=== PATIENT | male | born 1950 | race Caucasian/White ===

== ENCOUNTER → 2017-12-13 12:18 | Outpatient (CLI) | payer OTHER, SELFPAY ==
--- NOTE | 2017-12-13 | DI.MRI.S_ITS ---
PROCEDURE: MR SHOULDER RT W CON INDICATIONS: STRAIN UNSPECIFIED MUSCLE/TENDON. Prior shoulder surgery 07/14/17 TECHNIQUE: After the administration of 12 mL of dilute intra-articular Gadolinium contrast, oblique coronal T1 and T2 spin echo with fat saturation, oblique sagittal T1 spin echo with and without fat saturation, oblique sagittal T2 fast spin echo with fat saturation, axial T1 spin echo with fat saturation through the shoulder. COMPARISON: [facility], RF, [place] SHOULDER INJECTION MR/CT RT, 12/13/2017, 12:57. [facility], MR, SHOULDER LT W/O CONTRAST, 08/04/2013, 16:34. [facility] [place], CR, XR SHOULDER 2+ VIEWS RIGHT, 04/21/2017, 13:19. [facility], MR, MR SHOULDER RIGHT WITHOUT CONTRAST, 04/16/2017, 16:56. FINDINGS: Image quality: Excellent. Rotator cuff: Postsurgical changes related to soft tissue anchors seen in the humeral head suggesting prior rotator cuff repair. However there is a full-thickness defect involving the supraspinatus tendon which measures approximately 4.0 cm in AP dimension as seen on sagittal image 12 series 8 and likely involves the anterior-most fibers of the infraspinatus and superior-most fibers of the subscapularis tendon. There is superimposed additional partial-thickness articular sided subscapularis tear. The teres minor appears intact. Atrophy and fatty infiltration of the subscapularis, supraspinatus and infraspinatus muscle bellies is present Bones and bursae: No bone marrow contusions or fractures. There is moderate acromioclavicular joint degeneration. The acromion demonstrates conventional anatomy, without an os acromiale. Capsule and soft tissues: Mild frayed appearance and intermediate intrasubstance signal change involving the anteroinferior labrum without definite intrasubstance gadolinium signal intensity. Remainder of the labrum appears grossly intact although there is slight posterior subluxation of the humeral head relative to the glenoid. Frayed appearance of the superior labrum without discrete tear. The long head of the biceps tendon demonstrates normal location and morphology. The rotator interval appears normal, without fibrosis. The coracohumeral ligament is of normal thickness. No intra-articular bodies. IMPRESSION: Large full-thickness rotator cuff tear as detailed above involving the supraspinatus and the adjacent fibers of the infraspinatus and subscapularis tendons . This may be recurrent tear given the history of right shoulder surgery and postoperative changes as above Slight posterior subluxation of the humeral head relative to the glenoid suggestive of microinstability however no discrete labral tear is seen. There is ill-defined frayed appearance of the anteroinferior and superior labrum however no definite intrasubstance gadolinium signal intensity. Dictated by: Kervin Wright M.D. on 12/13/2017 at 14:36 Approved by: Kervin Wright M.D. on 12/13/2017 at 14:55
--- NOTE | 2017-12-13 | DI.RAD.S_ITS ---
PROCEDURE: FL SHOULDER INJECTION MR/CT RT INDICATIONS: 67 year-old male with right shoulder rotator cuff tendon repair, and persistent pain. TECHNIQUE: The indications, alternatives, benefits, risks, and complications of the procedure were explained to the patient. Written informed consent was obtained and placed in the chart. The shoulder was examined fluoroscopically and a site for needle placement chosen for entry into the glenohumeral joint from an anterior approach. The skin was prepped and draped in a sterile fashion, and 1% lidocaine infiltrated from skin down to joint capsule. A spinal needle was inserted into the glenohumeral joint, and a small amount of iodinated contrast media injected to confirm intra-articular placement of the needle tip. This was followed by approximately 12 mL dilute solution of a gadolinium containing MR contrast agent. The needle was removed and a dressing was applied. The patient was given postprocedural instructions and sent to the MR suite for MR imaging. FINDINGS: A single fluoroscopic spot image demonstrates intra-articular location of injected iodinated contrast. IMPRESSION: Successful fluoroscopically guided administration of dilute Gadolinium solution into the right shoulder joint for MR arthrogram. Dictated by: Lawrence Aragon M.D. on 12/13/2017 at 13:51 Approved by: Lawrence Aragon M.D. on 12/13/2017 at 13:52
== END ==
PROVIDERS: Visit Provider Orthopaedic Surgery
DX: S46.011A Strain of muscle(s) and tendon(s) of the rotator cuff of right shoulder, initial encounter (principal)
CPT/HCPCS: 23350; 73222; 77002

== ENCOUNTER 2018-01-20 10:26 | Day surgery (SDC) | payer OTHER, SELFPAY ==
[2018-01-17 14:19] VITALS: BMI 35.9
[2018-01-20] VITALS (8 sets, daily range): BP systolic 136–155; BP diastolic 80–101; PULSE 55–73; RESP 10–20; TEMP 35.9–36.6; O2SAT 93–99; BMI 35.9
[2018-01-20] MEDS: LACTATED RINGERS 1,000 ML 42 ML IV (11:45)
--- NOTE | 2018-01-20 13:43 | PM.PREOP ---
Pre-operative Note Interval Note Pre-op Check: History & Physical Reviewed by Physician
--- NOTE | 2018-01-20 13:43 | SUR.PREOP ---
Block start time 1337[] . Monitoring initiated and maintained throughout procedure. Oxygen and medications given per anesthesiologist instructions. Patient remained stable throughout procedure, no adverse reactions noted. Block end time [1345 ].
[2018-01-20] MEDS: CEFAZOLIN 2 GM/100 ML FROZ.PIGGY IV (14:15)
--- NOTE | 2018-01-20 14:53 | SUR.OPER ---
Beach chair on padded OR bed. Head on gel donut secured with padded velcro strap over gauze. Non-operative arm secured <90 degrees abduction on padded arm board secured with kerlix atop pillow. Pillow under knees. Safety belt at thigh. Cloth tape over blanket over lower legs.
[2018-01-20] MEDS: BUPIVACAINE 0.5% W/ EPI (PF) 30 ML VIAL INJ (15:34)
[2018-01-20] MEDS: SODIUM CHLORIDE IRRIG SOLUTION 3,000 ML, EPINEPHrine 1 MG IRR (15:35)
--- NOTE | 2018-01-20 15:50 | PM.PROC.1 ---
Procedures Date/Time Date of procedure: 01/20/18 Time of procedure: 13:37 General Procedure description: Ultrasound guided interscalene brachial plexus nerve block for post op pain control after right shoulder by Dr. Douglas. Risk and benefits of procedure discussed with patient. ASA monitoring applied to patient. 02 given via nasal cannula. 1 mg Versed and 50 mcg fentanyl given for procedural sedation. Skin site was prepped with chlorhexidine and allowed to fully dry. Sterile gloves, mask, hat and probe cover were used to maintain sterility. 2% lidocaine and 30ga needle was used to make a small skin wheal at needle insertion site. Under ultrasound guidance, a 21ga 50mm Pajunk needle was directed into the interscalene groove (middle/anterior scalenes) near the brachial plexus. Patient reported no parasthesias. After negative aspiration, 20 mL 0.5% ropivicaine and 10mg dexamethasone were injected around brachial plexus. Patient tolerated procedure well.
--- NOTE | 2018-01-20 16:00 | P.OP_ITS ---
Operative Date/Time/Diagnoses Date of procedure: 01/20/18 Time of procedure: 14:00 Pre-op diagnosis: Massive right rotator cuff tear Post-op diagnosis: same Procedure & Clinicians Procedure: Arthroscopic diagnostic shoulder scope followed by an open rotator cuff repair Same procedure as scheduled: Yes Indications: Massive rotator cuff tear involving supraspinatus and part of infraspinatus Surgeon: Leroy Douglas Instructor Hairspring: Ilene Pena Anesthesia Type: General and Peripheral nerve block Operative Notes Findings: Failure of previous repair of the supraspinatus with now some extension into 50% of the infraspinatus. Significant uncovering of the humeral head. No sign of any high riding humerus. No sign of any fractures. Closure Type: primary Specimen(s): none sent Implants & Drains: Arthrex Speed bridge x2 Applied: implant(s) Estimated Blood Loss (mL): 10 Blood products transfused: none Procedure in detail: On date of service, Patient was met in the holding area. The operative site was signed and witnessed by the OR staff. The surgeries once again discussed with the patient and any remaining questions they had were answered fully. Patient was taken back to the operating theater and placed on the operating table in a supine position. Great care was taken to ensure that all bony prominences were properly padded. Patient was then placed into the beach chair position. The head and neck were properly positioned and secured. A timeout was performed verifying patient's name, procedure, and the operative site. The upper extremity was then prepped and draped in the normal sterile fashion. Previously, the bony anatomy and portal sites were marked out as well as injected with Marcaine with epinephrine. An 11 blade was used to make an incision in the posterior aspect of the shoulder. The camera was placed, and a diagnostic shoulder scope was performed. Findings listed above. Camera was placed into the subacromial space. 1 could see the sutures still attached to the lateral anchor but pulled out of the cuff. At this point it was decided to convert over to an open procedure. Anterior lateral incision was made using a 10 blade. Electrocautery was used to achieve hemostasis. Deep dissection was performed until the fascia to the deltoid was visualized. Metzenbaum sutures were used to make a blunt split in the deltoid giving us good access to the subacromial space and the humeral head. We could see the free suture material still attached to the anchor as well as the uncovered humeral head. The previous suture material was removed. The previous anchor was left in place. It was still well seated in the bone. Using a combination of a Thorne elevator and arthroscopic liberators, the rotator cuff was freed of any scarring both superior and inferior. This allowed us to get a significant improvement in overall retraction of the cuff. Once all the adhesions were released we are able to pull the cuff back down to its normal footprint. It was decided at this point to do a double row repair. Two medial anchors were placed for the infraspinatus and repaired to 2 lateral anchors in a speed bridge pattern with crisscross sutures recreating the footprint. This was then repeated again with 2 more medial anchors for the supraspinatus with those sutures going in to 2 lateral anchors in a crisscross pattern allowing us to recreate the footprint for the supraspinatus. This provided a johnson repair of the rotator cuff. Subscapularis was free of any tearing as well as the biceps tendon. Wound was then copiously irrigated and closed in layered fashion. 2. FiberWire was used to repair the deltoid and the rest of the wound was closed in layered fashion. Patient was extubated and taken to the PACU in stable condition. Complications: none Condition: stable Disposition: PACU Plan for aftercare: Patient be in a sling for 6 weeks. Patient will follow our postoperative protocol for massive rotator cuff tear.
[2018-01-20] MEDS: fentaNYL 100 MCG/2 ML INJ 50 MCG IV (16:28)
[2018-01-20] MEDS: HYDROCODONE/ACET 5/325 TABLET 1 TAB PO (16:48)
--- NOTE | 2018-01-20 16:51 | SUR.PHASEI ---
Pt reported itching with pain med, unsure of name, clarified percocet made pt itchy per pt's spouse, Sury. JOSE Pearl notified, RX changed and ok to give po hydrocodone per [place].
== END 2018-01-20 17:30 | disposition home or self-care (01) ==
PROVIDERS: PCP Family Medicine; Visit Provider Orthopaedic Surgery
PROC: (CPT 29827; principal; 2018-01-20 12:45)
DX: M75.101 Unspecified rotator cuff tear or rupture of right shoulder, not specified as traumatic (principal); S46.011D Strain of muscle(s) and tendon(s) of the rotator cuff of right shoulder, subsequent encounter; G89.18 Other acute postprocedural pain; Z87.891 Personal history of nicotine dependence
CPT/HCPCS: 23412; 64450; J0171; J0690; J1100; J2250; J2405; J2704; J3010